=== PATIENT | male | born 1985 | race Caucasian/White ===

== ENCOUNTER → 2016-12-17 | Outpatient (CLI) | payer BC ==
--- NOTE | ~2016-12-17 | US115 ---
[facility] A Service of [facility] [place] RADIOLOGY TEXT RESULTS PATIENT: KIMANI SIMON LOCATION: [facility] : 89 UNIT #: [id number] AGE: [address]: Lazaro Santillan MD SEX: M ORDER DR: [id number] [address] [address] [id number] O MR#: [id number] Acc #: [id number] NAME: KIAMNI SIMON : 1985 SEX: M STUDY DATE/TIME: 12/17/2016 10:47 UNIT: [facility] ROOM: STUDY DESCRIPTION: US Scrotum and Contents Attending Physician: Lazaro Santillan M.D. Referring Physician: Lazaro Santillan M.D. Ordering Physician: Lazaro Santillan M.D. Primary Care Physician: Lazaro Santillan M.D. MEDICAL IMAGING REPORT This report is preliminary unless electronic signature is present. EXAM Ultrasound of scrotum and contents with color flow Doppler 12/17/2016 HISTORY Palpable left testicular mass for 6 months which has become painful in the last 2 months. TECHNIQUE Scales-scale images of the scrotum were obtained, as well as Doppler waveform spectral analysis and color flow Doppler imaging. FINDINGS The right testicle measured 2.1 cm x 3 cm x 4.1 cm, while the left testicle measured 2.1 cm x 3.1 cm x 3.1 cm. Both testes are homogeneous in echotexture demonstrate no cystic or solid mass lesions. Color-flow Doppler images show normal blood flow to both testes. Each epididymis appears normal. Trace scrotal fluid is noted. IMPRESSION Negative testicular ultrasound with color flow Doppler. Dictated by... Ortiz Meek M.D. THIS IS AN ELECTRONICALLY VERIFIED REPORT Ortiz Meek M.D. at 12/18/2016 7:33 AM RAND/henry TD: 12/17/2016 17:05 JOB #: [id number] [facility] A Service of [facility] [place] RADIOLOGY TEXT RESULTS PATIENT: KIMANI SIMON LOCATION: [facility] : [birth year] UNIT #: [id number] AGE: [address]: Lazaro Santillan MD SEX: M ORDER DR: MEDICAL IMAGING REPORT Page 1 of 1
== END | disposition home or self-care (01) ==
LOC: SGUS 10:03
DX: N50.89 Other specified disorders of the male genital organs (principal)
CPT/HCPCS: 76870

== ENCOUNTER → 2017-01-14 | Outpatient (CLI) | payer BC ==
--- NOTE | ~2017-01-14 | CT2 ---
[facility] A Service of [facility] RADIOLOGY TEXT RESULTS PATIENT: KIMANI SIMON JR LOCATION: [facility] : 89 UNIT #: [id number] AGE: [address]: Lewis Garza MD SEX: M ORDER DR: [id number] [facility] [address] [place], [place] [address] [id number] O MR#: [id number] Acc #: [id number] NAME: KIMANI SIMON JR : 1985 SEX: M STUDY DATE/TIME: 01/14/2017 10:44 UNIT: [facility]AT ROOM: STUDY DESCRIPTION: CT Abd and Pelv W Cont Attending Physician: Lewis Garza Jr., M.D. Referring Physician: Lewis Garza Jr., M.D. Ordering Physician: Leiws Garza Jr., M.D. Primary Care Physician: Lazaro Santillan M.D. MEDICAL IMAGING REPORT This report is preliminary unless electronic signature is present EXAM CT abdomen and pelvis without contrast INDICATIONS Left inguinal hernia with left lower quadrant abdominal pain and palpable mass for the past 6 months. PROCEDURE Contrast-enhanced CT of the abdomen and pelvis The CT exam was performed with one or more of the following radiation dose reduction techniques: automatic exposure control, adjustment of mA and/or kV according to patient size, and iterative reconstruction. COMPARISON: None FINDINGS Abdomen with contrast: Included lung bases clear. The liver, spleen, kidneys, adrenal glands, pancreas and gallbladder are unremarkable. Bowel loops nondilated. Appendix is normal. Pelvis with contrast: No pelvic mass or fluid. No evidence for an inguinal hernia. No abnormal mass is seen in the inguinal region. No aggressive appearing bone lesion. IMPRESSION 1. No acute findings in the abdomen or pelvis. 2. No evidence for inguinal hernia or abnormal mass in the inguinal regions. Dictated by... Jr Andrade M.D. [facility] A Service [facility] RADIOLOGY TEXT RESULTS PATIENT: KIMANI SIMON JR LOCATION: [facility] : 89 UNIT #: [id number] AGE: [address]: Lewis Garza MD SEX: M ORDER DR: THIS IS AN ELECTRONICALLY VERIFIED REPORT Jr Andrade M.D. at 01/16/2017 9:53 PM REBEKAH/patti TD: 01/14/2017 12:41 JOB #: [id number] MEDICAL IMAGING REPORT Page 1 of 1 COPY
== END | disposition home or self-care (01) ==
LOC: CCAT 08:53
DX: K40.90 Unilateral inguinal hernia, without obstruction or gangrene, not specified as recurrent (principal)
CPT/HCPCS: 74177; Q9967